=== PATIENT | female | born 1975 | race African-American/Black ===

== ENCOUNTER 2016-11-18 06:17 | Emergency (ER) | payer OTHER ==
--- NOTE | ~2016-11-18 | US61 ---
[facility] A Service [facility] RADIOLOGY TEXT RESULTS PATIENT: SHAGUFTA GERMAN LOCATION: [facility] : 79 UNIT #: [id number] AGE: [address]: Zack Mcgraw MD SEX: F ORDER DR: [id number] [place], [place] [address] [id number] MR#: [id number] Acc #: [id number] NAME: SHAGUFTA GERMAN : 1975 SEX: F STUDY DATE/TIME: 11/18/2016 7:41 UNIT: MAZIN ROOM: STUDY DESCRIPTION: US /Mat <14Wk / Attending Physician: Zack Mcgraw M.D. Ordering Physician: Zack Mcgraw M.D. Primary Care Physician: Primary Care Physician No MEDICAL IMAGING REPORT This report is preliminary unless electronic signature is present EXAM First trimester pelvic ultrasound INDICATION patient with lower abdominal pelvic pain since 4 a.m. today. PROCEDURE Charles-scale, color Doppler and M-mode imaging of the pelvis via transabdominal approach. COMPARISON None. FINDINGS Single intrauterine . The placenta is located anteriorly and towards the fundus. Femoral length 2.9 cm consistent with gestational age of 19 weeks 2 days. Head circumference 16.2 cm and biparietal diameter 4.6 cm consistent with gestational age 19 weeks 0 days. heart rate 133 beats per minute. Abdominal circumference 13.6 cm. No identifiable complication. IMPRESSION 1. Single intrauterine fetus estimated gestational age approximately 19 weeks. Heart rate 133 beats per minute with no identifiable complication. 2. Recommend continued OB followup and repeat pelvic ultrasounds as deemed clinically appropriate. Dictated by... Abimael Forte M.D. [facility] A Service [facility] RADIOLOGY TEXT RESULTS PATIENT: SHAGUFTA GERMAN LOCATION: [facility] : 79 UNIT #: [id number] AGE: [address]: Zack Mcgraw MD SEX: F ORDER DR: THIS IS AN ELECTRONICALLY VERIFIED REPORT Abimael Forte M.D. at 11/19/2016 8:27 AM FAITH/sandy TD: 11/18/2016 13:33 JOB #: [id number] MEDICAL IMAGING REPORT Page 1 of 1 COPY
[2016-11-18 07:20] LABS: BASOPHIL% 0.3 % (0-2.5); EOSINOPHIL# 0.1 X10e3 (0-0.7); EOSINOPHIL% 0.9 % (0.0-7.0); HEMATOCRIT 33.4 % (35.0-45.0); HEMOGLOBIN 11.2 gm/dL (12.0-16.0); LYMPHOCYTE# 1.9 X10e3 (1.0-3.5); LYMPHOCYTE% 18.8 % (17.0-45.0); MEAN CELL VOLUME 91.1 FL (83-96); MEAN CORPUSCULAR HEMOGLOBIN 30.5 PG (28-34); MEAN CORPUSCULAR HGB CONC 33.4 g/dL (30-36); MEAN PLATELET VOLUME 7.4 FL (6.5-11.5); MONOCYTE# 0.7 X10e3 (0-1.0); MONOCYTE% 7.3 % (3.0-12.0); NEUTROPHIL# 7.3 X10e3 (1.5-7.1); NEUTROPHIL% 72.7 % (40-75); PLATELET COUNT 178 X10e3 (140-420); RED BLOOD COUNT 3.66 X10e (3.90-5.30); RED CELL DISTRIBUTION WIDTH 13.8 % (11.0-15.5); WHITE BLOOD COUNT 10.1 X10e3 (4.0-10.5)
[2016-11-18 07:27] LABS: URINE SOURCE CLEAN CATCH
[2016-11-18 07:27] LABS: DIFF IND NO
[2016-11-18 07:32] LABS: URINE APPEARANCE CLEAR; URINE BILIRUBIN NEG (NEG); URINE BLOOD NEG (NEG); URINE COLOR YELLOW; URINE GLUCOSE NEG (NEG); URINE KETONE NEG (NEG); URINE LEUKOCYTE ESTERASE NEG (NEG); URINE NITRATE NEG (NEG); URINE PROTEIN NEG (NEG); URINE SPECIFIC GRAVITY 1.009 (1.003-1.035); URINE UROBILINOGEN 0.2 MG/DL (NEG)
[2016-11-18 07:44] LABS: CULTURE INDICATED? NO
[2016-11-18 07:52] LABS: ALKALINE PHOSPHATASE 37 U/L (32-92); ALT (SGPT) 9 U/L (10-40); AST (SGOT) 16 U/L (10-42); BILIRUBIN, DIRECT <0.1 mg/dL (0.0-0.2); BILIRUBIN,TOTAL 0.1 mg/dL (0.2-2.0); BLOOD UREA NITROGEN 5 mg/dL (9-23); CALCIUM SERUM 8.8 mg/dL (8.4-10.2); CARBON DIOXIDE 22 mmol/L (22-31); CHLORIDE 107 mmol/L (100-111); CREATININE SERUM 0.5 mg/dL (0.6-1.4); GLOM FILT RATE Estimated 141.3 mL/min (>60); GLUCOSE FASTING 80 mg/dL (70-110); LIPASE 21 U/L (22-51); POTASSIUM 3.1 mmol/L (3.5-5.1); PROTEIN TOTAL SERUM 6.2 g/dL (6.0-8.3); SODIUM 133 mmol/L (135-145)
[2016-11-20 09:52] LABS: CHLAMYDIA TRACH Not Detected (Not Detected); N GONOR Not Detected (Not Detected)
== END 2016-11-18 10:20 | disposition left against medical advice (07) ==
LOC: CED 06:17
PROVIDERS: Emergency Medicine
DX: O99.89 Other specified diseases and conditions complicating pregnancy, childbirth and the puerperium (principal); R10.9 Unspecified abdominal pain; Z3A.16 16 weeks gestation of pregnancy
CPT/HCPCS: 36415; 76801; 80048; 80076; 81003; 83690; 84702; 84703; 85025; 87491; 87591; 87808; 87905; 96360; 99284